=== PATIENT | female | born 1945 | race Caucasian/White ===

== ENCOUNTER → 2017-01-05 | Outpatient (CLI) | payer OTHER, MEDICARE ==
[~2017-01-05] MED LIST: ADVAIR 250-501 EACH INH; ASPIRIN LO-DOSE81 MG PO; CENTRUM SILVER1 TAB PO; CLARITIN10 MG PO; DILTIAZEM 24HR120 MG PO; DITROPAN XL15 MG PO; KRILL OIL 3001 EACH PO; LOTENSIN20 MG PO; PLAVIX75 MG PO; POTASSIUM GLUCO99 MG PO; PRILOSEC20 MG PO; RANEXA1000 MG PO; REPATHA SU140 MG/1 M SUB-Q; SPIRIVA HANDIHA1 KIT INH; TYLENOL325 MG PO; VITAMIN D35000 UNI1 PO
== END | disposition disaster alternative care site (69) ==
LOC: GRAD 08:39
DX: J96.90 Respiratory failure, unspecified, unspecified whether with hypoxia or hypercapnia (principal); J44.9 Chronic obstructive pulmonary disease, unspecified; R91.8 Other nonspecific abnormal finding of lung field; R55 Syncope and collapse; Z98.890 Other specified postprocedural states
CPT/HCPCS: A9539; A9540

== ENCOUNTER 2017-01-09 17:00 | Inpatient (IN) | payer OTHER, MEDICARE ==
[~2017-01-09] VITALS: Ht 152.4 cm; Wt 78.9 kg
--- NOTE | ~2017-01-09 | CON ---
PATIENT'S NAME: DEBORAH [facility] AGE: 71 Y [address] ROOM: [place] [address] LOCATION: [facility] ADMIT DATE: 01/09/2017 Consultation DISCHARGE DATE: FAMILY PHYSICIAN: PHYSICIAN, UNKNOWN ATTENDING PHYSICIAN: CHRYSTAL DELGADO REFERRING PHYSICIAN: DEBBIE ORDONEZ MD Consult for Dr. Villegas. This 71-year-old pleasant lady is referred for rehab evaluation, admitted on 01/06/2017 with episode on and off falling. She is describing some sort of syncope that reports feeling lightheaded with lightening, flashing in her visual denis, and feels weakness, and reportedly at least one time, she fell without hitting her head, but she did not remember if was slurred with her speech. No definitive weakness afterwards. She had cerebral atrophy with deep white matter ischemic changes and with multiple punctate area of low intensity in the anterior limb of the internal capsule of the right and left basal ganglia, and left central semiovale without any intracerebral bleeding. No definite history of any seizure disorder. She did not confirm any stroke before; however, she is at the present time, alert, oriented, well able to comprehend and express. Her voice is clear and not wet. She is able to attend to both sides. There is minimal upper lip right-side weakness that I could detect; however, she can swallow without difficulty. Tongue and soft palate are moving symmetrical. She is allergic to statins and has been putting on anti-statin medication recently. At the present time, her vitals are as follows. Blood pressure 120/73, temperature 98.3, pulse 79, respirations 16. She is 5 feet 0 inch tall and weighs 78.9 kg. She is on the following medications. 1. Senna. 2. Zofran. 3. Lisinopril. 4. Metoprolol. 5. Lovenox. 6. Sanctura. 7. Hardin-3. 8. Plavix. 9. Protonix. 10. NaCl 0.9%. PATIENT'S NAME: DEBORAH [facility] AGE: 71 Y [address] ROOM: [place] [address] LOCATION: [facility] ADMIT DATE: 01/09/2017 Consultation DISCHARGE DATE: FAMILY PHYSICIAN: PHYSICIAN, UNKNOWN ATTENDING PHYSICIAN: CHRYSTAL DELGADO 11. Spiriva. 12. Ranexa. 13. Tylenol. 14. Dulera. 15. Aspirin. 16. Senna. 17. Claritin. 18. Bisacodyl. 19. MOM. At the present time, she can move all four. Muscle strength is 3+ to 4/5 throughout, at least on both sides and equal to. She continent of her bowel and bladder. Deep tendon reflexes are present and equal throughout. ASSESSMENT AND PLAN: She is able to move at least 120 feet x1 with front-wheeled walker without losing her balance. I feel that this lady could go on an outpatient basis. I will keep watching her while she is here. Thank you for this referral. She is advised not to drive until she is re- evaluated. All the above was explained to her and her sister. They verbalized understanding and agreement with plan of care. MD SIDNEY GRANDE/feng /[id number] d: 01/12/17 1556 t: 01/13/17 0813, CONSULTATION REPORT
--- NOTE | ~2017-01-09 | HP ---
PATIENT'S NAME: OMAR CABRERA [facility] AGE: 71 Y [address] ROOM: [id number] [place], [place] [address] LOCATION: [facility] ADMIT DATE: 01/09/2017 History & Physical DISCHARGE DATE: FAMILY PHYSICIAN: PHYSICIAN, UNKNOWN ATTENDING PHYSICIAN: CHRYSTAL DELGADO DATE OF SERVICE: CHIEF COMPLAINT: Bilateral leg weakness and transient slurred speech. HISTORY OF PRESENT ILLNESS: This is a 71-year-old female who recently has been experiencing some episodes of syncope on and off and has been worked up from the outside facility in [place] without any clear explanation. The story is that this morning when she woke up she was feeling fine and she went to work, and around 10:00 a.m. at work, the patient was seeing some floaters in both eyes and was not feeling well in general and just felt this generalized weakness. The patient then went home to rest. The patient was sitting on the couch when her sister came by to visit her, she got up from the couch and tried to walk to the door to see her sister; however, when she got up from the chair, her legs were so weak that she fell onto the ground without hitting her head and without any loss of consciousness, she simply just sat on the ground because her legs were giving out. She crawled to the door and opened the door, and her sister called 911 because she was so weak she could not get up. While this was happening, she was also having some slurred speech on and off. The patient was brought in here for evaluation. When the patient came to the emergency room, her slurred speech and the leg weakness have greatly improved. The patient was brought to the [facility] over there. I do not believe Neurology was consulted at that time. The patient went to [place] around in the early afternoon. Over there, the patient had a CT scan of the brain and it showed negative for acute intracranial abnormality. There is cerebral atrophy with deep white matter ischemic changes. Multiple punctate areas of low density seen including the anterior limb of the internal capsule on the right, left basal ganglia area, left centrum semiovale suggesting small deep white matter infarcts. Negative for acute intracranial abnormality. Because of these findings, the patient was sent over here for higher level of care. Currently, the patient on my examination, she feels fine and is back to the baseline without any slurred speech or muscle weakness or any headache or seeing any floaters. The patient denies any prior history of stroke. She could not remember when was the last syncope, but she has not had syncope for a few days already. Denies any chest pain and also any shortness of breath and also any other PATIENT'S NAME: OMAR CABRERA [facility] AGE: 71 Y [address] ROOM: [address] [place] [id number] LOCATION: [facility] ADMIT DATE: 01/09/2017 History & Physical DISCHARGE DATE: FAMILY PHYSICIAN: PHYSICIAN, UNKNOWN ATTENDING PHYSICIAN: CHRYSTAL DELGADO symptoms. REVIEW OF SYSTEMS: As mentioned in the history of present illness. All other systems reviewed are negative except those mentioned in the history of present illness. PAST MEDICAL HISTORY: 1. COPD, on 2 L oxygen nasal cannula 24x7. 2. Coronary artery disease, status post CABG in 2009 and also had multiple stents placed, the last one was placed in 2013. 3. Hypertension. 4. Hyperlipidemia. 5. Gastroesophageal reflux disease. 6. Peripheral vascular disease. 7. The patient is intolerant to statin due to myalgia. Currently, she is taking Repatha. ALLERGIES: THE PATIENT IS ALLERGIC TO ISOSORBIDE MONONITRATE WHICH CAUSES GI UPSET, NITROGLYCERIN PATCH WHICH CAUSES A SKIN RASH, AMLODIPINE WHICH CAUSES RASH, AND HYDROCHLOROTHIAZIDE ALSO CAUSES RASH. HOME MEDICATIONS: 1. Tylenol 650 mg p.o. every 6 hours p.r.n. for pain or fever. 2. Aspirin 81 mg p.o. daily. 3. Benazepril 20 mg p.o. b.i.d. 4. Vitamin D3 5000 units p.o. daily. 5. Plavix 75 mg p.o. daily. 6. Cardizem CD 120 mg p.o. daily. 7. Repatha 140 mg subcutaneous every 14 days. 8. Advair 250/50 Diskus 1 puff inhalation twice a day. 9. Claritin 10 mg p.o. daily. 10. Krill oil soft gel capsule 300 mg p.o. daily. 11. Multivitamin 1 tablet p.o. daily. 12. Omeprazole 20 mg p.o. daily. 13. Oxybutynin 15 mg p.o. daily. 14. Potassium gluconate 99 mg p.o. daily. 15. Ranexa 1000 mg p.o. b.i.d. 16. Spiriva 1 puff inhalation every day. SOCIAL HISTORY: The patient was a former cigarette smoker, she quit about 9 years ago. She used to smoke about 1-1/2 pack per day for 30 years. She denies any alcohol or any illegal drug use. PATIENT'S NAME: OMAR CABRERA [facility] AGE: 71 Y [address] ROOM: [address] [address] LOCATION: [facility] ADMIT DATE: 01/09/2017 History & Physical DISCHARGE DATE: FAMILY PHYSICIAN: PHYSICIAN, UNKNOWN ATTENDING PHYSICIAN: CHRYSTAL DELGADO FAMILY HISTORY: Father suffers from diabetes type 2. Mother had a history of open heart surgery in the past. The patient denies any stroke history in the family. PAST SURGICAL HISTORY: 1. Status post CABG. 2. Status post drug-eluting stents placed in the past. 3. Status post appendectomy. 4. Status post cholecystectomy. 5. Status post hysterectomy with bilateral salpingo-oophorectomy. PHYSICAL EXAMINATION: VITAL SIGNS: At the time of my dictation, temperature 98.5, heart rate 78, respirations 15, blood pressure 133/67, and saturation 95% on 1 L nasal cannula. Pain 0/10. GENERAL APPEARANCE: Alert and oriented x3, in no acute distress. A very pleasant female. HEENT: Pupils equally round and reactive to light. Extraocular muscles intact. Anicteric sclerae. Nasal turbinates are normal bilaterally. Moist oral mucosa. No oral thrush. NECK: No JVD. No cervical lymphadenopathy. No neck stiffness. CARDIOVASCULAR: Regular rate and rhythm. Normal S1, S2. No murmur, no rubs, no gallops. RESPIRATORY: Clear. Chest wall nontender to palpation. ABDOMEN: Soft, nontender, nondistended. Normal bowel sounds. No hepatosplenomegaly. EXTREMITIES: No edema in upper or lower extremities. NEUROLOGIC: Alert and oriented x3. Cranial nerves 2-12 intact. No facial droop. Pronator drift negative. No slurred speech. No tongue deviation upon protrusion. Visual denis intact in all 4 quadrants. No nystagmus. Pupils equally round and reactive to light. Extraocular muscles are also intact. No slurred speech. Sensation intact in all 4 extremities. Sensation also intact in the face. Muscle strength 4/5 in the left lower extremity and 5/5 in all other 3 extremities. Lbmoch-ph-hsen intact. Pqbd-bh-kjoy intact. Deep tendon reflexes +2 bilaterally at the knees and also in the biceps area bilaterally. Babinski's negative bilaterally. Proprioception intact. Vibration intact. Gait not assessed due to fall risk. SKIN: No ulcer, no rash, no cyanosis. MUSCULOSKELETAL: No joint pain. No muscle pain. Range of motion intact. LABORATORY DATA: Labs from the outside facility today on January 09, 2017: Sodium 139, potassium 4.7, chloride 95, CO2 25.9, glucose 104, BUN 11, creatinine 1.0, and GFR 60. Calcium 9.3, total protein 6.9, albumin 3.4, total bilirubin 0.3, alkaline phosphatase 82, ALT 19, and AST 17. CRP 0.9. White blood cell 8.0, PATIENT'S NAME: OMAR CABRERA [facility] AGE: 71 Y [address] ROOM: [place] [address] LOCATION: [facility] ADMIT DATE: 01/09/2017 History & Physical DISCHARGE DATE: FAMILY PHYSICIAN: PHYSICIAN, UNKNOWN ATTENDING PHYSICIAN: CHRYSTAL DELGADO hemoglobin 10.3, hematocrit 29.5, MCV 99.7, and platelets 318. IMAGING STUDIES: 1. EKG on January 09, 2017, at 12:43 p.m. in [facility] showed normal sinus rhythm, heart rate at 70 beats per minutes, QTc 432 msec, QRS 88 msec, PI interval 192 msec, and no acute ischemic findings. 2. CT of the brain without contrast: Refer to the history of present illness for details. ASSESSMENT/PLAN: 1. Bilateral lower extremity weakness and transient slurred speech secondary to ischemic cerebrovascular accident: CT of the brain without contrast from the outside facility today shows evidence of lacunar infarct. I will be getting a full stroke workup including an MRI of the brain in the morning and an MRA of the brain and neck. We will get a transthoracic echo. PT and OT. She already passed the bedside dysphagia screen. I will still get an official speech and swallow evaluation in the morning. For now, she can eat cardiac diet. Fall precaution. Aspiration precaution. We will also get a Neurology consult in the morning. The patient is already out of the tPA window. I will keep the blood pressure on the higher side. I will give her 1 bolus of normal saline over 1 hour followed by maintenance fluids. Regarding medications, the patient is intolerant to statin. She has tried multiple statins in the past including Zocor, Crestor, and Lipitor, all give her myalgia. I will favor her to try pravastatin or fluvastatin which are the 2 of the statins that cause the least incidence of myalgia. I have spoken to the patient and she is willing to give it a try. The benefit definitely outweigh the risks in this case. If myalgia occurs, we can always stop the medication. I will recommend her to start with a low dose to see how she tolerates. Regarding that she already takes aspirin and Plavix at home, but still has these lacunar infarcts, the guideline says that next step would be either aspirin daily or we will stop aspirin and just Plavix daily, but this patient is already on aspirin and Plavix. The next choice per guideline will be aspirin in combination with dipyridamole 25 mg/200 mg 1 capsule p.o. b.i.d. The Plavix could clinically be discontinued given that the last stent was placed in 2013 according to the patient. However, before discontinuing the Plavix, I will still defer to her primary client program manager for permission first in case patient still needs to be on it for other lesions that were not stentable. Further plan will be assessed by Neurology. I will defer the dipyridamole in combination with aspirin to Neurology evaluation tomorrow. I will also defer the statin therapy to Neurology tomorrow, but I will definitely favor pravastatin or fluvastatin. Further plan depends on clinical course. The CT head done from outside facility was preliminary, so MRI brain here may show different findings. 2. Regarding her chronic obstructive pulmonary disease: Continue home oxygen 2 L. Currently stable, not in flare. 3. History of coronary artery disease, status post coronary artery bypass PATIENT'S NAME: OMAR CABRERA [facility] AGE: 71 Y [address] ROOM: [address] [place] [id number] LOCATION: [facility] ADMIT DATE: 01/09/2017 History & Physical DISCHARGE DATE: FAMILY PHYSICIAN: PHYSICIAN, UNKNOWN ATTENDING PHYSICIAN: CHRYSTAL DELGADO graft and stents: Currently stable, not in acute coronary syndrome. Continue telemetry monitoring. See #1 for details. 4. Hypertension. In the setting of acute ischemic stroke, I will try to keep the blood pressure in the higher end. I will bolus her with a normal saline 1 L right now followed by maintenance fluids. 5. Hyperlipidemia. As mentioned before, I will favor her to try pravastatin or fluvastatin given that the benefits outweigh the risks due to the benefit of the taking statin in this case. I will defer the decision to the Neurology. The patient is willing to try. 6. Gastroesophageal reflux disease: Continue home Protonix. 7. Deep venous thrombosis prophylaxis: She will be on Lovenox subcu. Time spent on the day of admission 45 minutes including chart review, interviewing the patient, examining the patient, addressing all the questions concerned the patient had, and going over the plan of care with the patient, nurse, and the patient's family members. I also addressed all the questions and concerns the family members had also. MD ARA LAGUERRE/feng /[id number]: [id number] T: [id number] HISTORY & PHYSICAL
--- NOTE | ~2017-01-09 | CON ---
PATIENT'S NAME: OMAR CBARERA [facility] AGE: 71 Y [address] ROOM: [address] [address] LOCATION: [facility] ADMIT DATE: 01/09/2017 Consultation DISCHARGE DATE: FAMILY PHYSICIAN: PHYSICIAN, UNKNOWN ATTENDING PHYSICIAN: CHRYSTAL DELGADO DATE OF CONSULTATION: 01/10/2017 REFERRING PHYSICIAN: DEBBIE ORDONEZ MD REQUESTING PROVIDER: Dr. Enriquez. REASON FOR CONSULTATION: Is it okay to stop Plavix? The patient has history of coronary artery disease. CHIEF COMPLAINT: The patient is here after experiencing altered speech and weakness in her legs. HISTORY OF PRESENTING ILLNESS: Omar is a very pleasant 71-year-old female, who is well known to [facility]. She has history of coronary artery disease status post CABG in 2009. She also has significant hyperlipidemia and is allergic to numerous statins including atorvastatin, simvastatin, and rosuvastatin and most recently, we have started her on PCSK9 inhibitor therapy and she is doing very well on that. Her last shot of that was on the of this month. She also has peripheral vascular disease. She did see Dr. Newell who recommended continued medical therapy. She had a stent in her left subclavian artery that was placed in 2013. She does not have any arm symptoms. The patient denies chest pain, tightness, pressure, heaviness, jaw pain, or arm pain. She does not have any symptoms of shortness of breath or dyspnea on exertion. She also reports that she is not having any intermittent claudication symptoms at this time. She did have an episode of syncope about 2 weeks ago and she was admitted at [facility] at that time. Now she comes in for symptoms of altered speech and as well as weakness in her legs for which she was admitted here. The CT showed cerebral atrophy with deep white matter ischemic changes, multiple punctate areas of low density seen in the anterior limb of the internal capsule on the right and left basal ganglia area and small deep white matter infarcts. She was then transferred here. All her symptoms have resolved now and she reports she feels back to normal. She does not have any fever, chills, nausea, vomiting, diarrhea, constipation, skin rashes, joint aches worse than usual. PATIENT'S NAME: OMAR CABRERA [facility] AGE: 71 Y [address] ROOM: [place] [address] LOCATION: [facility] ADMIT DATE: 01/09/2017 Consultation DISCHARGE DATE: FAMILY PHYSICIAN: PHYSICIAN, UNKNOWN ATTENDING PHYSICIAN: CHRYSTAL DELGADO REVIEW OF SYSTEMS: A 10-point review of systems discussed with patient. Pertinent positives and negatives mentioned in the history of presenting illness. PAST MEDICAL HISTORY: 1. Coronary artery disease, status post CABG in 2013. She had a subclavian stent placed in 2013. 2. COPD on 2 L of oxygen at home. 3. Hypertension. 4. Hyperlipidemia. PAST SURGICAL HISTORY: 1. CABG in 2009. 2. Appendectomy. 3. Cholecystectomy. 4. Hysterectomy with bilateral salpingo-oophorectomy. ALLERGIES: TO NUMEROUS STATIN, AMLODIPINE, AND IMDUR WHICH CAUSES GI UPSET. NITROGLYCERIN PATCH CAUSED A SKIN RASH. HYDROCHLOROTHIAZIDE CAUSED RASH. HOME MEDICATIONS: She is on, 1. Ranolazine 1000 b.i.d. 2. Plavix 75 daily. 3. Oxybutynin 15 daily. 4. Diltiazem 120 daily. 5. Fluticasone, salmeterol inhalers. 6. Tiotropium inhaler. 7. Evolocumab 140 mg subcu every 2 weeks. 8. Benazepril 20 daily. 9. Aspirin 81 daily. 10. Loratadine 10 daily. 11. Vitamin D3 5000 p.o. daily. 12. Krill oil 300 p.o. daily. 13. Omeprazole 20 daily. 14. Multivitamins daily. 15. Potassium 99 mg p.o. daily. 16. Tylenol p.r.n. SOCIAL HISTORY: The patient quit smoking 9 years ago. She denies alcohol or illicit drug abuse. FAMILY HISTORY: PATIENT'S NAME: OMAR CABRERA [facility] AGE: 71 Y [address] ROOM: [place] [address] LOCATION: [facility] ADMIT DATE: 01/09/2017 Consultation DISCHARGE DATE: FAMILY PHYSICIAN: PHYSICIAN, UNKNOWN ATTENDING PHYSICIAN: CHRYSTAL DELGADO No premature coronary artery disease or sudden cardiac . PHYSICAL EXAMINATION: VITAL SIGNS: Blood pressure 150/80, O2 saturation is 95% on 1 L, heart rate in the 70s, sinus rhythm, respirations 14, she is afebrile. GENERAL: Alert and oriented x3. No apparent distress. HEENT: Extraocular movements are intact. Sclera are white. Mucous membranes moist. NECK: No JVD. Supple. CARDIOVASCULAR: S1, S2. Regular rate and rhythm. No murmurs, gallops, or rubs. RESPIRATORY: Clear to auscultation bilaterally. ABDOMEN: Soft. Bowel sounds positive. EXTREMITIES: No lower extremity edema. NEUROLOGIC: Alert and oriented. No facial droop. Speech is normal. She is able to move all her extremities against gravity. SKIN: Warm and dry. MUSCULOSKELETAL: No swelling of joints noted. LABORATORY DATA: Sodium 133, potassium 4, chloride 102, CO2 24, glucose 106, BUN 8, creatinine 0.9. Liver enzymes are normal. GFR greater than 60. Triglycerides 132, LDL 85, A1c is 4.9. WBC is 6, H and H are 9.3 and 26.4, platelets are 248. IMAGING DATA: Cardiovascular: EKG normal sinus rhythm without any ST changes suggestive of ischemia or injury. IMPRESSION AND PLAN: 1. Bilateral lower extremity weakness and transient slurred speech secondary to ischemic cerebrovascular accident. If there is a better antiplatelet agent for stroke prophylaxis, okay to use that and stop Plavix since it has been over 2 years since her last stent. However, given her coronary artery disease and peripheral vascular disease if aspirin and Plavix are optimal for stroke prophylaxis, would recommend to continue that, however, if Aggrenox seems to be a better option per Neurology, okay to discontinue Plavix and start Aggrenox. 2. Hypertension. Continue medications and we will optimize her medications to keep her systolic blood pressure less than 130 after the acute phase of stroke. 3. Coronary artery disease status post coronary artery bypass graft. She is on optimal medical therapy. Continue DAPT. It is okay if she is started on Aggrenox, but continue aspirin 81 daily. Continue Ranexa, benazepril, diltiazem, and Repatha. Unfortunately, she has tried several statins and she has severe myalgias with many agents, so she is not able to take PATIENT'S NAME: OMAR CABRERA [facility] AGE: 71 Y [address] ROOM: [place] [address] LOCATION: [facility] ADMIT DATE: 01/09/2017 Consultation DISCHARGE DATE: FAMILY PHYSICIAN: PHYSICIAN, UNKNOWN ATTENDING PHYSICIAN: CHRYSTAL DELGADO that. Continue YOUSUF inhibitor, given her stroke. We will also get an echocardiogram, since we do not have her recent LV systolic function and see if there is any acute pathology that can be noted considering her recent stroke as well. She did have a positive stress test, however, there was [id number] ischemia in a small area in the antral septum. At this time given her absence of symptoms, we chose to continue medical therapy. We will get an echocardiogram. 4. Chronic obstructive pulmonary disease, on oxygen. Continue home O2 and inhalers. 5. Hyperlipidemia. LDL is 85 and well-controlled on Repatha. Continue fish oil. Her triglycerides are well-controlled. 6. Peripheral vascular disease. She does not have any intermittent claudication. We will continue medical therapy for now. Please continue telemetry and we will evaluate if there is any evidence of atrial fibrillation and in that case, she will need to be started on anticoagulation, if we do find any especially given the stroke presentation. However, it appears to be ischemic and so she is getting MRA and workup for ischemic CVA at this time. Thank you very much for allowing us to participate in the care of Ms. Cabrera. We will continue to follow the patient. TAMI DAVIDSON MD AT/latishal /[id number] d: 01/10/17 1241 t: 01/12/17 1012, CONSULTATION REPORT
--- NOTE | ~2017-01-09 | DS ---
PATIENT'S NAME: DEBORAH [facility] AGE: 71 Y [address] ROOM: [place] [address] LOCATION: [facility] ADMIT DATE: 01/09/2017 Discharge Summary DISCHARGE DATE: 01/14/2017 FAMILY PHYSICIAN: Physician, Unknown ATTENDING PHYSICIAN: Yvon Amaral V ADMISSION DIAGNOSIS: Bilateral leg weakness with dysphagia. SECONDARY DIAGNOSES: 1. Essential hypertension. 2. Hyperlipidemia. 3. Peripheral artery disease. 4. Coronary artery disease. 5. Chronic hypoxic respiratory failure, secondary to chronic obstructive pulmonary disease. 6. Nocturnal hypoxemia. CONSULTATIONS: 1. Neurology, on 01/10/2017, Alex Loza APRN with Nataly Burden APRN. I think they were reconsulted at another date. 2. Consultations rehab, Dr. Pniedo. 3. Consultations with Cardiology, Dr. Leonor Benjamin, 01/10/2017. PROCEDURES: 1. EEG showed some continuous slowing, generalized, and intermittent rhythmic slowing,. The EEG reason was syncope. In general, the EEG showed evidence of phhvcmwt-vh-jplxup diffuse encephalopathy. No definite epileptiform discharges or EEG seizures were seen during the recording. 2. Echocardiogram: Brief summary of findings: Mild concentric left ventricular hypertrophy. Grade 1 diastolic dysfunction and the test was done on 01/10/2017. The EEG was done on 01/14/2017. 3. Radiology: MRI of the brain with and without contrast on 01/10/2017 showed periventricular small vessel ischemic changes. No acute ischemia or hemorrhage. 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 MRA of carotid arteries with and without contrast on 01/10/2017 showed widely patent carotid arteries. No evidence of carotid artery stenosis and dominant left vertebral artery. COMPLICATIONS: None. BRIEF HISTORY: Ms. Cabrera is a 71-year-old female who recently had episodes of syncope intermittently and has been evaluated in [place] without a PATIENT'S NAME: DEBORAH [facility] AGE: 71 Y [address] ROOM: [place] [address] LOCATION: [facility] ADMIT DATE: 01/09/2017 Discharge Summary DISCHARGE DATE: 01/14/2017 FAMILY PHYSICIAN: Physician, Unknown ATTENDING PHYSICIAN: Yvon Amaral V clear etiology of syncope. The patient has been having some floaters in both eyes and was feeling generally unwell in terms of generalized weakness on the morning of admission and she got up from a chair and fell because of weakness, but denied loss of consciousness. When she could not get up, they called 911. She was having intermittent slurred speech. This was improved by the time she was evaluated in the emergency room in [place]. CT of the brain was negative for acute abnormality, but did show cerebral atrophy with deep white matter ischemic changes. Multiple punctate areas of low-density in the anterior limb of the internal capsule on the right, left basal ganglia area, left centrum semiovale suggesting small deep white matter infarcts. The patient was transferred to our hospital at [facility] for further evaluation and management. She was asymptomatic at the time of admission to our hospital. She has chronic COPD and she is on home O2 at 2 L and this was continued during the hospitalization. She had a history of coronary artery disease, status post coronary artery bypass grafting and stents. She was on Plavix at the time of admission and Cardiology was consulted. Regarding the need for continuing Plavix, the patient has severe hyperlipidemia and had adverse reactions or allergies to multiple statins including atorvastatin, simvastatin, rosuvastatin, she had been started on PCSK-9 inhibitor therapy and was doing well; although, by the time, I saw the patient there was some suspicion that this could be causing some of her symptoms of generalized weakness and it had been stopped. She is also status post stent to the left subclavian artery in 2013. Because of suggestion to start Aggrenox, Cardiology agreed with stopping Plavix and starting Aggrenox. Please see the Cardiology consultation for further details. Although, the patient seems to be at baseline related to these episodes of subtle neurologic changes, we continue to be concerned about the causes of the EEG and generalized slowing. By the time, I arrived, there was some suspicion that Repatha could be causing her generalized weakness symptoms. The Repatha was discontinued on 01/13/2017. The patient was re-seen by Angi Burden in conjunction with the tele-neurologist space control agent on the and ordered the EEG. Laboratory evaluation during her hospitalization included ELY, which was negative, rheumatoid factor, also negative, TSH 0.431, at the lower limit of normal, CRP slightly elevated at 1.57, upper limit of normal is 0.9, sed rate was also slightly elevated at 41 with upper limit of normal being 30, MCV was elevated at 100.9. On 01/13/2017, her white blood cell count was 8.9, hemoglobin 11.7, hematocrit 34.9, and platelets 339. Dr. Pinedo felt that she would be okay for outpatient rehab; however, due to family circumstances and no one to be at home with her and her continued concerns for being able to function independently, after long discussion with PATIENT'S NAME: OMAR CABRERA [facility] AGE: 71 Y [address] ROOM: [address] [address] LOCATION: [facility] ADMIT DATE: 01/09/2017 Discharge Summary DISCHARGE DATE: 01/14/2017 FAMILY PHYSICIAN: Physician, Unknown ATTENDING PHYSICIAN: Yvon Amaral Dr. in [place], she was accepted there, for short swing bed stay. This took quite a bit of arranging with case management etc. and waiting for insurance decision. On the day of discharge, the patient and her family were in agreement with the plan to go to [place] and Dr. Giron had also spoken with her family. INSTRUCTIONS AT DISCHARGE: Follow up with GI for positive occult blood, Dr. Sanchez in 2 weeks with a plan for extended EEG monitoring. She is to be full code. Diet was regular. Weightbearing and walk using a walker with assistance and fall precautions and to have OT, PT, and Speech Therapy. She was continued on home O2 and considering her nocturnal hypoxemia should have a sleep study. MEDICATIONS AT THE TIME OF DISCHARGE: 1. Aspirin 81 mg daily. 2. Her Plavix was continued in lieu of starting Aggrenox, which did not seem to be preferred by the neurologist so she is 75 mg p.o. daily. 3. Benazepril 20 mg p.o. b.i.d. 4. Metoprolol 25 mg p.o. b.i.d. 5. Fish oil 1 g everyday. 6. Repatha was recommended that she hold at least 2 weeks to see if her symptoms improved. 7. Omeprazole 20 mg p.o. daily. 8. Ranexa 1000 mg p.o. b.i.d. 9. Senna 1 p.o. at h.s. 10. Advair Diskus 250/50 1 puff b.i.d. 11. Spiriva 1 puff daily. 12. Tylenol p.r.n. pain. 13. Multiple vitamin once a day. 14. Ditropan 50 mg daily. 15. Vitamin D 5000 units a day. CONDITION ON DISCHARGE: Good. Time spent on discharge was greater than 35 minutes. BARRETT SMITH MD LM/feng PATIENT'S NAME: OMAR CABRERA [facility] AGE: 71 Y [address] ROOM: [place] [address] LOCATION: [facility] ADMIT DATE: 01/09/2017 Discharge Summary DISCHARGE DATE: 01/14/2017 FAMILY PHYSICIAN: Physician, Unknown ATTENDING PHYSICIAN: Yvon Amaral V /[id number] CC: Mendel Giron DO d: 02/17/17 0317 t: 02/27/17 1810, DISCHARGE SUMMARY
--- NOTE | ~2017-01-09 | CON ---
PATIENT'S NAME: DEBORAH [facility] AGE: 71 Y [address] ROOM: [place] [address] LOCATION: [facility] ADMIT DATE: 01/09/2017 Consultation DISCHARGE DATE: FAMILY PHYSICIAN: PHYSICIAN, UNKNOWN ATTENDING PHYSICIAN: CHRYSTAL DELGADO DATE OF CONSULTATION: 01/11/2017 REFERRING PHYSICIAN: DEBBIE ORDONEZ MD TIME: 11 a.m. CHIEF COMPLAINT: Bilateral leg weakness and slurred speech. HISTORY OF PRESENT ILLNESS: This is a 71-year-old female who, since November, has been having episodes occurring possibly 2 to 3 times a week, lasting anywhere from 4 to 24 hours. These episodes include blurry vision, decreased mobility including her lower extremities, and slurred speech. One episode on December 15, the patient states she actually lost consciousness. She denies any new medications or any recent illnesses. She presented to the [facility] where a CT was completed. It was negative for acute abnormality, but did show some cerebral atrophy and deep white matter ischemic changes along with multiple punctate areas of low density in the anterior limb of the internal capsule on the right and the left basal ganglia area. The patient denies any prior history of stroke. The only other time she has had difficulty ambulating was a couple of years ago when, when she would walk, she would have bilateral burning pain in both her legs. This has since resolved. She denies any headache or any loss of consciousness except for the December 15 issue. Denies any trauma to the head. She is positive for multiple falls because of the weakness. Denies any recent chest pain or shortness of breath. REVIEW OF SYSTEMS: As mentioned in the History of Present Illness. A 10-point review of systems was conducted, and pertinent positives are in the HPI. PAST MEDICAL HISTORY: Includes: 1. COPD. 2. Coronary artery disease, status post CABG and stent; the last one in 2013. 3. Hypertension. 4. Hyperlipidemia. 5. GERD. PATIENT'S NAME: DEBORAH [facility] AGE: 71 Y [address] ROOM: [place] [address] LOCATION: [facility] ADMIT DATE: 01/09/2017 Consultation DISCHARGE DATE: FAMILY PHYSICIAN: PHYSICIAN, UNKNOWN ATTENDING PHYSICIAN: CHRYSTAL DELGADO 6. Peripheral vascular disease. 7. Of note, the patient is intolerant to statin therapy due to myalgia. Currently, she is on Repatha. ALLERGIES: THE PATIENT IS ALLERGIC TO ISOSORBIDE MONONITRATE WHICH CAUSES GI UPSET, NITROGLYCERIN PATCH WHICH CAUSES A SKIN RASH, AMLODIPINE WHICH CAUSES A RASH, AND HYDROCHLOROTHIAZIDE ALSO CAUSES RASH. HOME MEDICATIONS: Include: 1. Tylenol 650 mg p.o. every 6 hours p.r.n. for pain or fever. 2. Aspirin 81 mg p.o. daily. 3. Benazepril 20 mg p.o. b.i.d. 4. Vitamin D3 at 5000 units p.o. daily. 5. Plavix 75 mg p.o. daily. 6. Cardizem CD 120 mg p.o. daily. 7. Repatha 140 mg subcutaneous every 14 days. 8. Advair 250/50 Diskus one puff inhalation twice a day. 9. Claritin 10 mg p.o. daily. 10. Krill oil softgel capsule 300 mg p.o. daily. 11. Multivitamin one tablet p.o. daily. 12. Omeprazole 20 mg p.o. daily. 13. Oxybutynin 15 mg p.o. daily. 14. Potassium gluconate 99 mg p.o. daily. 15. Ranexa 1000 mg p.o. b.i.d. 16. Spiriva one puff inhalation every day. SOCIAL HISTORY: The patient was a former smoker, quitting 9 years ago. She smoked one and a half packs per day for 30 years. She denies any alcohol or illegal drug use. The patient is employed. FAMILY HISTORY: Her father suffers from diabetes, type 2. Mother had history of CABG surgery. The patient denies any stroke history in the family. PAST SURGICAL HISTORY: Includes. 1. CABG. 2. Stent. 3. Appendectomy. 4. Cholecystectomy. 5. Hysterectomy. PATIENT'S NAME: OMAR [facility] AGE: 71 Y [address] ROOM: [place] [address] LOCATION: [facility] ADMIT DATE: 01/09/2017 Consultation DISCHARGE DATE: FAMILY PHYSICIAN: PHYSICIAN, UNKNOWN ATTENDING PHYSICIAN: CHRYSTAL DELGADO PHYSICAL EXAMINATION: VITAL SIGNS: Temperature 98.5, heart rate 78, respirations 16, blood pressure 122/64, and saturations 95% on 1 L nasal cannula. The patient actually does have a headache and states she just completed MRI which was very loud, and she blames that for her headache. Pain is 4/10 right now, and she is receiving acetaminophen for this. GENERAL APPEARANCE: Alert and oriented x4. She is in no acute distress. She is a good historian and very pleasant. HEENT: Pupils are round and reactive to light. Extraocular muscles intact. Head is normocephalic and atraumatic. NECK: No JVD. No lymphadenopathy. No nuchal rigidity. CARDIOVASCULAR: Regular rate and rhythm. Normal S1 and S2. No murmurs, rubs, or gallops. RESPIRATORY: Clear to auscultation bilaterally. ABDOMEN: Soft, nontender, and nondistended. Normal bowel sounds. EXTREMITIES: No edema in upper or lower extremities. NEUROLOGIC: Alert and oriented x4. For the NIH Stroke Scale, level of consciousness zero, level of consciousness questions zero, level of consciousness commands zero, best gaze zero, visual zero, facial palsy zero, motor arm left zero, motor arm right zero, motor leg left zero, motor leg right zero, limb ataxia zero, sensory zero, best language zero, dysarthria zero, extinction and inattention zero, for a total NIH score of zero. DTRs 2+ at biceps and patellar. Proprioception and vibration intact. Gait not assessed at this time. IMAGING: MRI of the brain shows periventricular small vessel ischemic changes with no acute ischemia or hemorrhage. 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 The MRA of the neck shows widely patent carotid arteries with no evidence of carotid artery stenosis and a dominant left vertebral artery. Cervical, thoracic, and lumbar studies are pending. ASSESSMENT AND PLAN: 1. Regarding transient ischemic attack or stroke. The MRI of the brain is negative. Her risk factors are being treated to the best of our ability. This does not appear to be related to a primary neurological deficit. Agree with continuing aspirin and Plavix therapy. Would consider holding Repatha to see if that helps her mobility. This could be a medication- related issue. I would not restart a statin until that is determined. 2. Bilateral leg weakness. I agree with the MRI of the spine. 3. Hyperlipidemia. As mentioned above, the Repatha may be a causative factor in the patient's symptoms. Would wait for the MRI and consider holding Repatha to see if that helps her symptoms. Would not start PATIENT'S NAME: OMAR [facility] AGE: 71 Y [address] ROOM: [place] [address] LOCATION: [facility] ADMIT DATE: 01/09/2017 Consultation DISCHARGE DATE: FAMILY PHYSICIAN: PHYSICIAN, UNKNOWN ATTENDING PHYSICIAN: CHRYSTAL DELGADO another statin during this time. Thank you for the opportunity to participate in this patient's care. The plan of care was developed in conjunction with Dr. Ordonez who also examined the patient with me. VADIM BRUNSON APRN FOR DEBBIE ORDONEZ MD PP/feng /[id number] d: 01/11/17 1507 t: 01/13/17 1642, CONSULTATION REPORT
--- NOTE | ~2017-01-09 | NDGEN ---
PATIENT'S NAME: DEBORAH [facility] AGE: 71 Y [address] ROOM: [place] [address] LOCATION: [facility] ADMIT DATE: 01/09/2017 Neurodiagnostics DISCHARGE DATE: FAMILY PHYSICIAN: PHYSICIAN, UNKNOWN ATTENDING PHYSICIAN: CHRYSTAL DELGADO PROCEDURE: ELECTROENCEPHALOGRAM DATE OF PROCEDURE: 01/13/2017 TEST: TECH: CLINICAL DIAGNOSIS: DURATION OF EE minutes. REASON FOR EEG: Syncope. CLINICAL HISTORY: The patient is a 71-year-old female who was experiencing episodes of syncope on an off. She was at work when she noticed some floaters in the eyes and then felt generalized weakness. EEG FINDINGS: The patient is asleep for majority of the EEG and drowsy for a brief duration. An outpatient EEG primarily consists of continuous slow in a generalized distribution. There are periods of high amplitude, intermittent rhythmic slowing in the delta range with frequencies between 1-2 hertz. These episodes were seen in runs of 3-5 seconds on few occasions. During the sleep phase, vertex waves were seen in the central head regions. There was no clear background/awake pages that were identified. The patient's EEG was extremely limited by excessive EMG artifact. CLASSIFICATION: Abnormal two, drowsy/asleep 10/20 scalp electrode. 1. Continuous slow, generalized. 2. Intermittent rhythmic slow. IMPRESSION: This EEG shows evidence of [id number] diffuse encephalopathy. No definite epileptiform discharges or EEG seizures were seen during this recording. This EEG was somewhat limited with excessive EMG/movement artifact. The results were communicated with the primary team. FAISAL COBB MD PAT[facility]: [facility] AGE: 71 Y [address] ROOM: [place] [address] LOCATION: [facility] ADMIT DATE: 01/09/2017 Neurodiagnostics DISCHARGE DATE: FAMILY PHYSICIAN: PHYSICIAN, UNKNOWN ATTENDING PHYSICIAN: CHRYSTAL DELGADO BRYANT/modl /[id number] dtt: 01/16/17 0855 JORDYN RAM MOHAN R. dtd: 01/14/17 0001
--- NOTE | ~2017-01-09 | ECHO ---
Transthoracic Echocardiography Report (TTE) Demographics Patient Name OMAR CABRERA Date of Study 01/10/2017 Patient Number [id number] Visit Number [id number] Date of 1945 Room Number G6232 Accession Number [id number] Gender Female Age 71 year(s) Referring Zoe Jacobo MD Recruiting Team Lead Tom Yoder [facility] Physician Physician Interpreting Cassidy Galvez Transportation Analyst Physician MD Supervising Ordering Physician Zoe Jacobo MD, MD/P Nurse Stress Classroom Assistant Conclusions Contractility Score Summary At rest the following contractility abnormalities were noted: Dyskinesis of the Mid amla-septal, the Mid infero-septal, the Apical septal, the Basal alma-septal, the Basal infero-septal and the Apical cap segments. Contractility of all other segments appeared normal. Summary Normal LV/RV size and systolic function. The estimated left ventricular ejection fraction is 50%. Mild concentric left ventricular hypertrophy. Diastolic assessment reveals Grade I diastolic dysfunction. No significant valvular abnormalities. No evidence of pericardial effusion. Procedure Type of Study TTE procedure:2D Echocardiogram, M-Mode, Doppler , Color Doppler. Procedure Date Date: 01/10/2017 Start: 01:35 PM Study Location: Inpatient Portable Technical Quality: Adequate visualization Indications:CVA. Patient Status: Routine HR: 82 bpm BP: 174/81 mmHg M-Mode/2D Measurements LV Diastolic Dimension: 4.87 cm LV Systolic Dimension: 3.07 cm LV Septum Diastolic: 1.07 cm LV PW Diastolic: 0.97 cm Cardiac Output: 7.64 l/min LA Dimension: 3.4 cm LVOT: 2.1 cm LVOT VTI: 26.9 cm RV Base: 3.21 cm LV Stroke volume: 93.12 ml RV Length: 5.86 cm TAPSE: 1.69 cm TDI-S': 10.4 cm/s Doppler Measurements AV Peak Velocity: 1.59 m/s MV Peak E-Wave: 0.88 m/s AV Peak Gradient: 10.11 mmHg MV Peak A-Wave: 1.22 m/s AV Mean Gradient: 5 mmHg MV E/A Ratio: 0.72 LVOT Peak Velocity: 1.23 m/s MV P1/2t: 82 msec TR Gradient:31.58 mmHg PV Peak Velocity: 0.85 m/s Estimated RAP:5 mmHg PV Peak Gradient: 2.87 mmHg Estimated RVSP: 37 mmHg Estimated PASP: 36.58 mmHg E' Septal Velocity: 0.08 m/s A' Septal Velocity: 0.12 m/s E' Lateral Velocity: 0.12 m/s A' Lateral Velocity: 0.09 m/s Findings Left Ventricle Mild concentric left ventricular hypertrophy. Diastolic assessment reveals Grade I diastolic dysfunction. Right Ventricle Normal right ventricle structure and function. Left Atrium Normal left atrial size. Right Atrium Normal right atrial size. IVC measures .9 cm with inspiratory collapse. Mitral Valve Mitral regurgitation when calculated by the PISA method is mild based on a regurgitant orifice area of .18 cm2. The regurgitant volume is 20 ml/beat. Aortic Valve Normal aortic valve structure and function. Tricuspid Valve Mild tricuspid regurgitation by color Doppler. There is mild pulmonary hypertension. The pulmonary pressure (RVSP) is 37 mmHg. Pericardial Effusion No evidence of pericardial effusion. Miscellaneous Visualized portions of the aortic root and ascending aorta appear normal in size. Pleural Effusion No evidence of pleural effusion. Signature dtt: TAMI DAVIDSON dtd: 01/10/17 6044 Physician Self Edit
[2017-01-09] MEDS ORDERED: DITROPAN XL15 MG PO (20:36)
[2017-01-09] MEDS ORDERED: RANEXA1000 MG PO (20:36)
[2017-01-09] MEDS ORDERED: PLAVIX75 MG PO (20:36)
[2017-01-09] MEDS ORDERED: SPIRIVA HANDIHA1 KIT INH (20:37)
[2017-01-09] MEDS ORDERED: DILTIAZEM 24HR120 MG PO (20:37)
[2017-01-09] MEDS ORDERED: ADVAIR 250-501 EACH INH (20:37)
[2017-01-09] MEDS ORDERED: ASPIRIN LO-DOSE81 MG PO (20:38)
[2017-01-09] MEDS ORDERED: REPATHA SU140 MG/1 M SUB-Q (20:38)
[2017-01-09] MEDS ORDERED: CLARITIN10 MG PO (20:38)
[2017-01-09] MEDS ORDERED: LOTENSIN20 MG PO (20:38)
[2017-01-09] MEDS ORDERED: VITAMIN D35000 UNI1 PO (20:39)
[2017-01-09] MEDS ORDERED: KRILL OIL 3001 EACH PO (20:39)
[2017-01-09] MEDS ORDERED: POTASSIUM GLUCO99 MG PO (20:40)
[2017-01-09] MEDS ORDERED: PRILOSEC20 MG PO (20:40)
[2017-01-09] MEDS ORDERED: CENTRUM SILVER1 TAB PO (20:40)
[2017-01-09] MEDS ORDERED: TYLENOL325 MG PO (20:41)
--- NOTE | 2017-01-09 20:52 | NUR ---
71 Y/O FEMALE ADMITTED FOR A STROKE. PT & FAMILY STATES THAT PATIENT HAS BEEN HAVING PROBLEMS WITH EPISODES OF SLURRED SPEECH, DIFFICULTY FINDING HER WORDS, ALSO OCC DIZZINESS AND BLURRED VISION ALONG WITH FREQUENT FALLS AT HOME AT LEAST ONCE PER WEEK IF NOT MORE FREQUENTLY. PT STATES SHE HAS ALSO NOTICED THAT HER WRITING HAS NOT BEEN NICE THE PAST MONTH WELL. ON 12/15/16 PT WAS IN THE [facility] FOR DIZZINESS THEN RELEASED. PT MEDICAL & SURGICAL HISTORY - TOTAL ABD HYSTERECTOMY WITH BILAT SALPINGO-OOPHERECTOMY, APPY, MOISES, PTCA/BALLOON 1989, PTCA/2 STENTS IN 1999 & 2013, 3 VESSEL CABG 12/2009. CAD, HIGH CHOL, HTN, PNEUMONINA IN 2008, COPD, HOME O2 @ 2L CONTINOUS, DIVERTICULITIS, NOCTURIA & OCC DRIBBLING, HX KIDNEY STONES. PT IS FORMER SMOKER X 35YRS & QUIT IN 2008. REPORT GIVEN TO PT PRIMARY CARE NURSE RASHEL RYAN ADM EDUCATION COMPLETED
[2017-01-10 04:45] LABS: HEMATOCRIT 26.4 % (33.0-46.0); HEMOGLOBIN 9.3 g/dL (10.0-15.0); MCH 34.8 pg (27.0-34.0); MCHC 35.2 gm/dL (32.0-36.5); MCV 98.9 fl (83.0-98.0); MPV 7.8 fl (9.4-12.4); RBC 2.67 M/uL (3.50-5.50); RDW-CV 12.3 % (11.9-14.6)
[2017-01-10 05:02] LABS: BLOOD UREA NITROGEN 8 mg/dL (6-24); CALCIUM 8.1 mg/dL (8.5-10.5); CHLORIDE 102 mMol/L (96-110); CO2 24 mMol/L (22-32); CREATININE 0.9 mg/dL (0.5-1.1); ESTIMATED GFR (MDRD EQUATION) > 60; MAGNESIUM 1.8 mg/dL (1.3-2.6); PHOSPHORUS 2.7 mg/dL (2.5-4.9); SODIUM 133 mMol/L (135-145)
--- NOTE | 2017-01-10 05:43 | NUR ---
Significant Event: PATIENT IS ALERT AND ORIENTED X3. VSS. NIHSS-0. FOLLOWS COMMANDS. DENIES MORRIS. DENIES N/T. BLURRED VISION. NO DIZZINESS. GENERALIZED WEAKNESS. UP WITH 2A GB/WALKER. SR WITH 1 DEGREE AVB. HX OF COPD- KEEP STATS BETWEEN 90%-94%-1L OF O2 PER NC. CARDIAC DIET. KEEP SBP GREATER THAN 160, LESS THAN 200, OTHERWISE CALL MD. LAST BM-01/08-ACTIVE X4. PIV'S TO LEFT AND WRIST WRIST. LEFT WRIST HAS NS AT 75 ML/HR. SCATTERED BRUISING & OLD BURN ON MIDDLE TWO FINGERS OF RIGHT HAND. HAS A HX OF FALLING ONCE TO MORE THAN ONCE A WEEK- ULTRA HIGH. HAD 1000 ML NS BOLUS THIS SHIFT. TAKES PILLS WHOLE WITH WATER REMIND PATIENT TO DRINK SLOW. Follow up: MONITOR SBP.
[2017-01-10 15:45] LABS: CPK 69 IU/L (21-215)
--- NOTE | 2017-01-10 17:25 | NUR ---
Significant Event: Alert and oriented X 3. Room air. SBP 160's and 170's. HR 70's and 80's. Stroke scale 0. Complains of a slight headache but refuses any medication. Up with 2 assist to bedside commode. UA needed. Stated she had blurred vision at beginning of shift and at 2nd assessment blurred vision had improved. Abdomen is round and states that it is a little tender. Left and right peripheral IV's with normal saline infusing at 75 ml/hr in left IV. Pleasant and cooperative with cares Follow up: MRI of C-spine, T-spine tomorrow morning between 0830 and 0900.
[2017-01-10 20:34] LABS: BILIRUBIN URINE NEGATIVE (NEGATIVE); BLOOD URINE NEGATIVE /UL (NEGATIVE); COLOR URINE YELLOW (YELLOW); GLUCOSE URINE NEGATIVE (NEGATIVE); KETONE URINE NEGATIVE (NEGATIVE); LEUKOCYTES URINE NEGATIVE /UL (NEGATIVE); NITRITE URINE NEGATIVE (NEGATIVE); PROTEIN URINE NEGATIVE (NEGATIVE); TURBIDITY URINE CLEAR (CLEAR); UROBILINOGEN URINE NORMAL (NORMAL)
--- NOTE | 2017-01-11 07:09 | NUR ---
Significant Event: PATIENT IS ALERT AND ORIENTED X3. VSS. FOLLOWS COMMANDS. DENIES BLURRED VISION. DENIES N/T. DENIES MORRIS. NIHSS-0. SR WITH FIRST DEGREEE AVB. 1L OF O2 PER NASAL CANNULA. CARDIAC DIET. BOWEL ARE ACTIVE-LAST BM 01/08. 1A GB/WALKER. RIGHT HAND PIV- 75ML NS. Follow up:MRI THIS AM. GOAL IS TO WALK TO THE BATHROOM TODAY.
--- NOTE | 2017-01-11 13:25 | NUR ---
[facility] - Pt participated in Communication-cognitive and swallowing evaluation on 01/10/17. She demonstrates functional linguistic/cognitive skills and swallowing function. Further treatment is not recommended at this time. Plan - discharge 01/11/17 Edward RODRIGUEZ MS CCC/EDGE CUTTING MACHINE OPERATOR
--- NOTE | 2017-01-11 19:00 | NUR ---
Significant Event: Alert and oriented X 3. Room Air. SBP 150, 171 and 151. HR 70's and 80's. Bowel sounds hypoactive, prune juice given. Stroke scale 0. Orders for no IV. 1 assist, gait belt and walker. Complaints of headache after MRI, tylenol given, results noted. Follow up:
--- NOTE | 2017-01-12 04:56 | NUR ---
Significant Event: PATIENT IS ALERT AND ORIENTED X3. VSS. FOLLOWS COMMANDS. DENIES MORRIS. DENIES PAIN. DENIES BLURRED VISION. DENIES N/T. GENERALIZED WEAKNESS. EQUAL STRENGTH THROUGHOUT. PERRLA. SR WITH 1ST DEGREE AVB. ROOM AIR DURING DAY-1L AT NIGHT. CARDIAC DIET-LAST BM 01/08-PATIENT REQUESTED ONE TIME DOES OF MOM-GIVEN AT 2100-NO RESULTS-BOWELS ACTIVE X4. 1A GB/WALKER. NO IV ACCESS-PER MD ORDER. TAKES PILLS WHOLE WITH WATER. NO LONGER NEED SBP PARAMETERS-PER MD ORDER. Follow up: POSSIBLE D/C TODAY
[2017-01-12 11:41] LABS: HEMOGLOBIN 11.7 g/dL (10.0-15.0); MCV 100.9 fl (83.0-98.0); MPV 8.1 fl (9.4-12.4); RDW-CV 12.6 % (11.9-14.6); WBC 8.9 K/uL (4.0-11.0)
[2017-01-12 11:44] LABS: HEMATOCRIT 34.9 % (33.0-46.0); MCH 33.8 pg (27.0-34.0); MCHC 33.5 gm/dL (32.0-36.5); PLATELET COUNT 339 K/uL (150-450); RBC 3.46 M/uL (3.50-5.50)
[2017-01-12 11:54] LABS: ALBUMIN 3.6 gm/dL (3.5-5.0); ANION GAP 15.2 (10.0-19.0); CALCIUM 9.4 mg/dL (8.5-10.5); PHOSPHORUS 2.6 mg/dL (2.5-4.9); POTASSIUM 4.2 mMol/L (3.7-5.1)
[2017-01-12 12:04] LABS: ABSOLUTE NEUTROPHIL CT (ANC) 7.9 K/uL (1.8-7.8); BANDED NEUTROPHIL # 0.4 K/uL (0.0-0.1); BANDED NEUTROPHILS % 4 %; LYMPHOCYTE # 0.5 K/uL (0.8-4.0); LYMPHOCYTE % 6 %; MONOCYTE # 0.4 K/uL (0.0-1.0); SEGMENTED NEUTROPHIL # 7.6 K/uL (1.8-7.8); SEGMENTED NEUTROPHIL % 85 %
--- NOTE | 2017-01-12 13:27 | NUR ---
Introduced self and care management services to patient and sister at bedside. Lives in [place]. Sister concerned about her going home alone, lives alone, in case has a recurrence of symptoms. Has stopped medication they think was causing problem, medication reaction. Dr Juarez ordered Dr Pinedo to consult for inpt rehab. Explained to pt and sister may not have medical qualifier for rehab with diagnosis and even if she does, rehab is full so I will start a referral to [facility] and see if her insurance will allow a skilled stay. They are okay with that. I did put a call in to [facility] and waiting for her to call me back to see what she thinks, what bed situation is. Called Efern at [facility] and started referral, they will work on precertification and let me know if they can accept.
--- NOTE | 2017-01-12 15:11 | NUR ---
Significant Event: Patient alert and oriented x3. Denies numbness/tingling. Pupils 4mm, brisk. Grasps strong and equal bilaterally. VSS, on 1L O2. Tele on- sinus rhythm with 1st degree heart block. Bowel sounds hyperactive. Nauseated this morning, okay now. PO zofran available PRN. Large bowel movement this morning after dulcolax suppository. No IV per MD order. Looking into swingbed placement. Follow up: VS/neuros q 4 hours. Up with 1PA. Cardiac diet.
--- NOTE | 2017-01-13 02:28 | NUR ---
Significant Event: The patient is Alert and Oriented x3. Denies Numbness and Tingling. Moves all extremities spontaneously and to command. Up with SBA, gaitbelt and walker. Steady gait. Denies Pain. VSS. On 1L oxygen per Nasal Cannula. Scattered Bruising. No IV access per MD order. Nausea and acid reflux around 0100 PO zofran given. Still need Hematest x1. Follow up: Discharge Home?
--- NOTE | 2017-01-13 12:22 | NUR ---
Reviewed chart and talked with patient nurse, Lola Childers APRN and Dr Juarez. Then talked with patient and sister and called son Allan [phone]. Dr Pinedo consulted and recommended outpt therapies. I talked with Efren at [facility] and they are waiting to hear back from pt insurance to see if they will approve a skilled stay. [facility] skilled unit is closing and not accepting patients. Son would like pt to go to [facility], has concerns about her going home alone. Explained to him that if insurance approves swingbed stay that is fine, but if they don't will have to regroup as they won't continue to approve acute stay. Explained I can make a referral out to snf (long term) but it would be private pay, asked him if insurance doesn't approve swingbed if pt can go home with him for a while or with other family. He said they would have to talk about it. Discussed she is ready for discharge once we know if insurance will approve swingbed stay. Pt does not have a primary care physician, she saw Dr Solorio in [place] but she has moved and hasn't seen a physician anywhere since. Explained she needs to get established with a primary care physician and asked who she would prefer to see. She said Dr Giron. I let Efren at [facility] know this. Dr Villegas talked with Dr Giron yesterday but still up in the air if will accept, not in the office today. She will call son and answer his medical questions and then call Dr Giron again, out of the office today but has his cell number. Waiting to see if insurance will approve.
--- NOTE | 2017-01-13 16:56 | NUR ---
Stopped by room and talked with pt and son at bedside, waiting for Dr Giron to call Dr Villegas back and waiting to hear from Sergio Riley that they have insurance approval. They voice understanding. Discussed again that if insurance doesn't approve a swingbed stay they will have to decide what to do, dc home vs dc home with family vs look for another option for care but will be private pay. They report if insurance does approve stay either son will come get her or if sister visiting she will drive her over. Will talk with them both tomorrow. Son won't be here in the morning.
--- NOTE | 2017-01-13 17:00 | NUR ---
Significant Event: Patient alert and oriented x3. Pupils 4mm, brisk. Hypertensive, all other VSS on room air. Wears O2 when sleeping. Voids per bathroom. Still need hemetest x1. No changes in patient condition throughout shift. No IV per MD order. Follow up: VS/neuros q 4 hours. Up with SBA. Cardiac diet. [place] [facility]?
--- NOTE | 2017-01-14 02:33 | NUR ---
Significant Event: Patient A/O X 3. Perrla. Denies N/T. Moves all extremities spontaneously and to command with equal strength. No nausea this shift. HTN SBPs 130s-140s. Lungs clear on room air during the day, 1-2 L at night. Bowels active, had a loose stool yesterday. Hematest was positive. MD notified, no new orders. Ambulates SBA. No IV per MD. No complaints of pain. Follow up: Waiting for insurance. Home with home health or swing bed?
--- NOTE | 2017-01-14 11:10 | NUR ---
A-SCREENED D/T LOS ADMITTED FOR STROKE. WAITING FOR PLANS SO SHE CAN BE D/C HT: 60 IN. WT: 78.9 KG. 175% IBW. BMI: 33.1 LABS: NA 136, K+ 4.2, GLU 144, BUN 15, ADMINISTRATIVE SUPPORT ASSISTANT 1.0, ALB 3.6 MEDS: SENOKOT, ZESTRIL, SANCTURA, FISH OIL, RANEXA ER, PROTONIX DIET RX: CARDIAC. PO INTAKE SINCE ADMIT HAS BEEN REFUSALS-100%. PO INTAKE HAS IMPROVED OVER THE LAST COUPLE OF DAYS. AVG PO INTAKE SINCE ADMIT IS 68%. EST NUTR NEEDS: [id number] KCALS (20-25 KCALS/KG) 68-90 GM PROTEIN (1.5-2.0 KG/IBW) 1 ML FLUID/KCAL D-NOT AT NUTRITION RISK AT THIS TIME; NO NUTRITION DX IDENTIFIED I-CONTINUE W/CURRENT DIET RX M/E-ASSIST NEEDED
--- NOTE | 2017-01-14 11:24 | NUR ---
Talked with Dr Villegas, she hasn't heard back from her voicemail message she left Dr Giron on his cell phone yesterday, she will call him when she sees pt today. I called Efren at [facility] and their business office talked with insurance this morning at 0900 and they are working on precert for skilled and should hear back today if they will approve or not.
--- NOTE | 2017-01-14 13:40 | NUR ---
Talked with Dr Villegas and again with Efren at [facility]. Insurance requesting information re: therapies today. I reviewed PT/OT notes with Efren and she will relay them to insurance reviewer and call me back with whether or not they will approve a swingbed stay. Dr Villegas talked with Dr Giron and Dr Giron accepted, I let Efren know that. She will call me back with whether insurance will approve swingbed stay. Per Dr Villegas pt said if insurance doesn't approve swingbed stay then she will go home with HH.
--- NOTE | 2017-01-14 15:14 | NUR ---
Efren from [facility] called and said pt insurance approved 7 day swingbed stay, can come to them today. She talked with son and nata in law and they are on the way to pick her up. Let physician and nurse know here, nurse has number to call report, I faxed orders, and let pt know. Going for swingbed stay.
--- NOTE | 2017-01-14 15:21 | NUR ---
Significant Event: PT ALERT AND ORIENTED X3. PERRLA. DENIES NUMBNESS/TINGLING. AMBULATES WITH STAND-BY ASSIST/WALKER. VOIDS PER BATHROOM. NO BM THIS SHIFT. TOOK A SHOWER THIS AM. VITAL SIGNS STABLE; ON ROOM AIR. WEARS 1 LITER O2 AT NIGHT. DENIES ANY PAIN. SCATTERED BRUISING. BILATERAL CALF PUMPS ON. EEG DONE YESTERDAY AND WAS NEGATIVE FOR SEIZURES. NO IV ACCESS PER MD ORDER. CARDIAC DIET; GOOD APPETITE. TELEMETRY D/C'D. ORDERS WERE WRITTEN THAT PT MAY BE TRANSFERRED TO [facility] TODAY. Follow up: PLAN TO TRANSFER TO [facility] THIS AFTERNOON PER PRIVATE AUTO; FAMILY TO TRANSPORT PT; REPORT WILL BE CALLED AND GIVEN TO RECEIVING NURSE; TRANSFER PACKET WILL BE SENT WITH PT.
== END 2017-01-14 16:00 | disposition swing bed (61) | DRG 556 ==
LOC: GNTU 18:59
PROVIDERS: Family Medicine; Internal Medicine; ADMIT Internal Medicine
DX: R29.898 Other symptoms and signs involving the musculoskeletal system (principal); J96.10 Chronic respiratory failure, unspecified whether with hypoxia or hypercapnia; G47.34 Idiopathic sleep related nonobstructive alveolar hypoventilation; R13.10 Dysphagia, unspecified; J44.9 Chronic obstructive pulmonary disease, unspecified; I10 Essential (primary) hypertension; Z79.82 Long term (current) use of aspirin; Z79.02 Long term (current) use of antithrombotics/antiplatelets; I25.10 Atherosclerotic heart disease of native coronary artery without angina pectoris; Z95.1 Presence of aortocoronary bypass graft; E78.5 Hyperlipidemia, unspecified; K21.9 Gastro-esophageal reflux disease without esophagitis; Z87.891 Personal history of nicotine dependence; Z95.5 Presence of coronary angioplasty implant and graft; I73.9 Peripheral vascular disease, unspecified
CPT/HCPCS: A9577; J1650; J7030; J7042; Q0162

== ENCOUNTER → 2017-01-27 | Outpatient (CLI) | payer OTHER, MEDICARE ==
--- NOTE | ~2017-01-27 | ECHO ---
Cardiac Stress Test Demographics Patient Name OMAR CABRERA Date of Study 01/27/2017 Patient Number [id number] Visit Number [id number] Date of 1945 Room Number Gender Female Number Age 71 year(s) Referring Martin Interpreting Martin Carter Physician Raul Physician Physician Ordering Real Estate Associate Physician Supervising Donny Lee APRN Stress Timber Incisor Operator Dayan Maynard RDCS, MD/MLP Nurse Tai Goodman RN Procedure Type of Study Cardiac Stress Test:Tilt Table Study. Procedure Date Date: 01/27/2017 Start: 01:02 PM Patient Status: Routine Allergies - Other:(Nitroglycerin, Amlodipine). Conclusions Summary Patient educated about the procedure. Supine EKG shows Sinus Rhythm with 1st degree AVB, inverted T waves in inferior and anterior leads. HR 75 bpm with BP 168/79. TIlted to 80 degrees with initial tilt vital signs showing HR 83 and BP 142/80. No changes to EKG throughout entire tilt test. BP continued to slowly lessen as the test progressed - no changes to HR or EKG during progressive hypotension. Patient began to feel "slightly dizzy" at the 27 minute john. Test terminated at 36 minute john due to BP 62/40 and patient having worsening dizziness. Patient returned to supine and given 250ml of NACL IV x1 with post test BP of 153/76 and HR 74. Once again, no arrhythmias during entire test and no tachycardic HR response to hypotension. Patient had vasodepressor response to tilt table. Recommendation Patient resulted after test and explained orthostasis. The dose of Benazepril was decreased to 10 mg bid. Educated about use of Ja Stockings, slow position changes, and will have her follow up with Dr. Benjamin as an outpatient for continued monitoring of response to therapy. Consider alternative antihypertensive medications if she has supine uncontrolled hypertension. Stress Protocol Rest ECG Sinus rhythm with 1st degree AVB. Resting HR:76 bpmResting BP:168/79 mmHg Pre-Stress Physical Exam Patient assessed by Deonte DARLING prior to testing. Chest - CTA Cardio - RRR, S1, S2 Stress Predicted HR: 151 bpm HR Response: Appropriate BP Response: Inappropriate Reason for Termination: Hypotension ECG No significant ST changes. Arrhythmias No arrhythmias noted. Symptoms Dizziness. Signature dtt: RAUL BARROW dtd: 01/27/17 1302 Physician Self Edit
== END | disposition disaster alternative care site (69) ==
LOC: GCAR 12:36
DX: R55 Syncope and collapse (principal); R42 Dizziness and giddiness; I44.0 Atrioventricular block, first degree
CPT/HCPCS: J7050